=== PATIENT | female | born 1980 | race Caucasian/White ===

== ENCOUNTER 2020-06-21 05:56 | Emergency (ER) | payer BC, SELFPAY ==
[~2020-06-21] VITALS: Ht 162.6 cm; Wt 77.1 kg
[2020-06-21 06:30] VITALS: BP_SYST 126
[2020-06-21] MEDS ORDERED: ACETAMINOPHEN 500 MG TABLET PO ONE (06:45)
[2020-06-21] MEDS ORDERED: ONDANSETRON HCL 4 MG/2 ML VIAL IVP ONE (06:45)
[2020-06-21] MEDS ORDERED: NACL 0.9% 1,000 ML IV ONE (06:45)
[2020-06-21] MEDS ORDERED: AZITHROMYCIN 250 MG TABLET PO ONE (06:45)
[2020-06-21] MEDS ORDERED: cefTRIAXone 1 GM in D5W 50 ML IV ONE (06:45)
[2020-06-21] MEDS ORDERED: LIDOCAINE 1%, 20 ML MDV 20 ML ONE (08:41)
[2020-06-21] MEDS ORDERED: LIDOCAINE 1% 10 MG/ML, 20 ML MDV INJ ONE (08:45)
[2020-06-21 09:15] LABS: BASOPHILS % (AUTO) 0.3 % (0.0-2.0); HEMATOCRIT 37.7 % (36-48); HEMOGLOBIN 12.5 g/dL (12.0-16.0); LYMPHOCYTES # (AUTO) 0.5 K/uL (1.0-5.5); LYMPHOCYTES % (AUTO) 9.5 % (20.5-51.5); MEAN CORPUSCULAR HEMOGLOBIN 29 pg (27-31); MEAN CORPUSCULAR HGB CONC 33 % (32-36); MEAN CORPUSCULAR VOLUME 87 fL (79.0-98.0); MONOCYTES # (AUTO) 0.4 K/uL (0.0-1.0); MONOCYTES % (AUTO) 7.3 % (1.7-9.3); NEUTROPHILS # (AUTO) 4.7 K/uL (1.8-7.7); NEUTROPHILS % (AUTO) 82.9 % (40.0-70.0); PLATELET COUNT (AUTO) 130 K/uL (130-430); RED BLOOD CELL COUNT(AUTO) 4.32 MIL/uL (4.2-6.2); RED CELL DISTRIBUTION WIDTH 12.6 % (9.0-15.0); WHITE BLOOD COUNT (AUTO) 5.7 K/uL (4.8-10.8)
[2020-06-21 09:21] LABS: ANION GAP 14 (5-15); CALCIUM 8.8 mg/dL (8.4-11.0); CHLORIDE 100 mmol/L (98-107); CREATININE 0.56 mg/dL (0.55-1.30); GLUCOSE 108 mg/dL (70-99); POTASSIUM 3.6 mmol/L (3.5-5.1); SODIUM SERUM 138 mmol/L (136-145); UREA NITROGEN, BLOOD 8 mg/dL (8-21)
[2020-06-21 09:28] LABS: GFR AFRICAN AMERICAN 155 mL/min (>90)
[2020-06-21] MEDS ORDERED: BACITRACIN 1 GM OINT TP ONE (09:31)
[2020-06-21 09:38] LABS: ALANINE AMINOTRANSFERASE 31 U/L (12-78); ALBUMIN 3.9 g/dL (3.4-4.8); ASPARTATE AMINOTRANSFERASE 28 U/L (10-37); TOTAL BILIRUBIN 0.3 mg/dL (0.0-1.0)
[2020-06-21 09:40] LABS: ALCOHOL, BLOOD < 3 mg/dL (<10)
[2020-06-21 10:40] VITALS: BP_SYST 131
[2020-06-21] MEDS ORDERED: INSULIN REGULAR, HUMAN 10 UNITS/0.1 ML INJ ONE (11:11)
== END 2020-06-21 10:40 | disposition home or self-care (01) ==
LOC: SED 05:56
DX: S01.81XA Laceration without foreign body of other part of head, initial encounter (principal); R55 Syncope and collapse; Z20.828 Contact with and (suspected) exposure to other viral communicable diseases; W18.39XA Other fall on same level, initial encounter; Y93.89 Activity, other specified; Y92.091 Bathroom in other non-institutional residence as the place of occurrence of the external cause; Y99.8 Other external cause status
CPT/HCPCS: 12011; 36415; 70450; 71045; 76376; 80053; 84484; 85025; 87426; 99285; G0482; J1815; J2001